=== PATIENT | male | born 1950 | race Caucasian/White ===

== ENCOUNTER 2018-12-13 09:38 | Emergency (ER) | payer MEDICARE ==
[~2018-12-13] VITALS: Ht 167.6 cm; Wt 75.0 kg
[2018-12-13] MEDS ORDERED: pilocarpine 2% ophthalmic drops 15ml LEFTEYE ONE ×2 (09:55→10:05)
[2018-12-13] MEDS ORDERED: VALA100027 PO (11:08)
[2018-12-13] MEDS ORDERED: CIPR2.5D18 RIGHTEYE (11:08)
[2018-12-13 11:39] VITALS: BP 145/75
== END 2018-12-13 11:42 | disposition home or self-care (01) ==
LOC: ER 09:40
DX: B02.30 Zoster ocular disease, unspecified (principal); Z79.899 Other long term (current) drug therapy
CPT/HCPCS: 99283